=== PATIENT | female | born 1930 | race Caucasian/White ===

== ENCOUNTER 2017-05-15 11:09 | Emergency (ER) | payer MEDICARE ==
[~2017-05-15] VITALS: Wt 63.5 kg
[~2017-05-15 11:09] MED LIST: AMPICILLIN250 MG PO; ANUSOL-HC25 MG R; ASPIRIN81 M1 PO; AUGMENTIN 875875 MG PO; CIPROFLOXACIN500 MG PO; KEFLEX500 MG PO; LIPITOR20 MG PO; TRAMADOL HCL50 MG PO; XANAX0.25 MG PO
[2017-05-15 11:16] VITALS: BP 178/69
[2017-05-15] MEDS ORDERED: VITAMIN B125000 MCG SL (11:18)
[2017-05-15 11:52] LABS: BASO # 0.1 10*3/uL (0.0-0.1); BASO % 0.6 % (0.0-1.0); EOS # 0.2 10*3/uL (0.0-0.4); EOS % 2.7 % (1.0-4.0); HEMATOCRIT 37.4 % (37.0-47.0); HEMOGLOBIN 12.5 g/dl (12.0-16.0); LYMPH # 1.3 10*3/uL (1.3-4.4); LYMPH % 16.2 % (27.0-41.0); MEAN CELL VOLUME 87.4 fl (81.0-99.0); MEAN CORPUSCULAR HGB 29.2 pg (27.0-31.0); MEAN CORPUSCULAR HGB CONC 33.4 g/dl (33.0-37.0); MEAN PLATELET VOLUME 8.8 fl (9.6-12.3); MONO # 0.6 10*3/uL (0.1-1.0); MONO % 7.1 % (3.0-9.0); NEUT # 5.7 10*3/uL (2.3-7.9); PLATELET COUNT AUTOMATED 246 10*3/uL (130-400); RED BLOOD COUNT 4.28 10*6/uL (4.10-5.10); RED CELL DISTRI WIDTH 12.3 % (0-14.5); WHITE BLOOD COUNT 7.9 10*3/uL (4.8-10.8)
[2017-05-15 12:01] LABS: BILIRUBIN NEGATIVE (NEGATIVE); BLOOD 1+ (NEGATIVE); CLARITY SL CLOUDY (CLEAR); COLOR YELLOW (YELLOW); GLUCOSE NEGATIVE (NEGATIVE); KETONE NEGATIVE (NEGATIVE); LEUKO ESTERASE 2+ (NEGATIVE); NITRITE NEGATIVE (NEGATIVE); SPECIFIC GRAVITY 1.015 (1.005-1.030); UROBILINOGEN 0.2 E.U./dl (0.2-1.0)
[2017-05-15 12:11] LABS: ALBUMIN 3.7 gm/dl (3.1-4.5); CREATININE 1.07 mg/dL (0.55-1.02); POTASSIUM 4.6 mmol/L (3.5-5.1)
[2017-05-15 12:24] LABS: BACTERIA 1+; MUCOUS 1+
[2017-05-15] MEDS ORDERED: MACROBID100 M1 PO (13:15)
== END 2017-05-15 13:32 | disposition home or self-care (01) ==
LOC: ED 11:09
PROVIDERS: Nurse Practitioner Family
DX: N39.0 Urinary tract infection, site not specified (principal); Z90.710 Acquired absence of both cervix and uterus; Z79.899 Other long term (current) drug therapy; Z79.82 Long term (current) use of aspirin

== ENCOUNTER → 2017-05-20 | Outpatient (CLI) | payer MEDICARE ==
[~2017-05-20] MED LIST changes: +MACROBID100 M1 PO; +VITAMIN B125000 MCG SL
== END | disposition home or self-care (01) ==
LOC: CT 11:00
DX: T82.7XXD Infection and inflammatory reaction due to other cardiac and vascular devices, implants and grafts, subsequent encounter (principal); K76.89 Other specified diseases of liver; J84.10 Pulmonary fibrosis, unspecified; K57.30 Diverticulosis of large intestine without perforation or abscess without bleeding; R82.99 Other abnormal findings in urine; Z90.710 Acquired absence of both cervix and uterus

== ENCOUNTER 2017-06-10 15:12 | Emergency (ER) | payer MEDICARE ==
[~2017-06-10] VITALS: Ht 170.1 cm; Wt 63.5 kg
[2017-06-10] MEDS ORDERED: ROBAXIN500 M1 PO (16:41)
[2017-06-10 16:42] VITALS: BP 154/64
== END 2017-06-10 16:42 | disposition home or self-care (01) ==
LOC: ED 15:12
DX: M54.2 Cervicalgia (principal); R51 Headache; Z79.82 Long term (current) use of aspirin; Z79.899 Other long term (current) drug therapy

== ENCOUNTER → 2018-07-16 | Outpatient (CLI) | payer MEDICARE ==
[~2018-07-16] MED LIST changes: +CELEBREX100 MG PO; +ROBAXIN500 M1 PO
== END | disposition home or self-care (01) ==
LOC: MAMMO 10:36
DX: N64.4 Mastodynia (principal)

== ENCOUNTER 2018-08-06 09:31 | Emergency (ER) | payer MEDICARE ==
[~2018-08-06] VITALS: Ht 167.6 cm; Wt 63.5 kg
[~2018-08-06 09:31] MED LIST changes: -CELEBREX100 MG PO
[2018-08-06] MEDS ORDERED: CELEBREX100 MG PO (10:03)
[2018-08-06 12:35] VITALS: BP 167/66
== END 2018-08-06 12:37 | disposition home or self-care (01) ==
LOC: ED 09:31
DX: I10 Essential (primary) hypertension (principal); Z79.899 Other long term (current) drug therapy; Z79.82 Long term (current) use of aspirin